=== PATIENT | male | born 1950 | race Caucasian/White ===

== ENCOUNTER 2018-04-13 14:43 | Inpatient (IN) | payer MEDICARE, OTHER ==
[~2018-04-13] VITALS: Ht 162.6 cm; Wt 64.9 kg
[2018-04-13] MEDS ORDERED: SODIUM CHLORIDE 0.9% 1,000 ML IV ONE (15:11)
[2018-04-13 16:44] LABS: CHLORIDE 105 mEq/L (98-107)
[2018-04-13 16:49] LABS: HEMATOCRIT. 30.9 % (42.0-52.0); HEMOGLOBIN. 10.3 g/dL (14.0-18.0); MEAN CORPUSCULAR HEMOGLOBIN 30.8 pg (28.0-32.0); MEAN CORPUSCULAR VOLUME 92.2 fL (80.0-94.0); MEAN PLATELET VOLUME 8.6 fl (7.4-10.4); RED BLOOD CELL COUNT 3.35 mill/uL (4.7-6.1); RED CELL DISTRIBUTION WIDTH 18.5 % (11.6-14.6)
[2018-04-13 16:56] LABS: PLATELET 12 x1000/uL (130-400)
[2018-04-13] MEDS ORDERED: CEFTRIAXONE 1 G PREMIX 50 ML IV ONE (17:30)
[2018-04-13 20:00] VITALS: BP 134/83
[2018-04-13 20:07] LABS: CLARITY URINE CLEAR (CLEAR); COLOR URINE YELLOW (YELLOW); KETONES URINE NEGATIVE (NEGATIVE); LEUKOCYTE ESTERASE URINE 1+ (NEGATIVE); NITRITE URINE NEGATIVE (NEGATIVE); OCCULT BLOOD URINE 3+ (NEGATIVE); PROTEIN URINE 1+ (NEGATIVE); SPECIFIC GRAVITY URINE 1.004 (1.005-1.030); UROBILINOGEN URINE 0.2 E.U./dL (0.2-1.0)
[2018-04-13 20:26] LABS: PLATELET ESTIMATE MARKEDLY DECREASED
[2018-04-13 21:00] VITALS: BP 134/83
[2018-04-13] MEDS ORDERED: ATOR10TA MT (21:06)
[2018-04-13] MEDS ORDERED: AMLO2.5T45 MT (21:06)
[2018-04-13] MEDS ORDERED: METO25TA6 MT (21:06)
[2018-04-13] MEDS ORDERED: MORPHINE SULFATE 10 MG/ML CPJ IV PRN (22:00)
[2018-04-14] VITALS (10 sets, daily range): BP systolic 143–156; BP diastolic 74–84
[2018-04-14] MEDS ORDERED: ONDANSETRON HCL 4MG/2ML INJ IV PRN (03:00)
[2018-04-14] MEDS: BLOOD SUGAR DIAGNOSTIC STRIP TEST SCH ×4 (06:23→21:20)
[2018-04-14] MEDS ORDERED: DEXTROSE 50% WATER 50ML SYRINGE IV PRN (07:30)
[2018-04-14] MEDS ORDERED: INSULIN LISPRO 100 UNITS/ML SUBCUT SCH (07:50)
[2018-04-14 07:53] LABS: HEMATOCRIT. 26.7 % (42.0-52.0); HEMOGLOBIN. 9.1 g/dL (14.0-18.0); MEAN CORPUSCULAR HEMOGLOBIN 31.1 pg (28.0-32.0); MEAN CORPUSCULAR VOLUME 91.6 fL (80.0-94.0); MEAN PLATELET VOLUME 8.3 fl (7.4-10.4); RED BLOOD CELL COUNT 2.92 mill/uL (4.7-6.1)
[2018-04-14 08:04] LABS: PLATELET 9 x1000/uL (130-400)
[2018-04-14] MEDS: AMLODIPINE 10MG TABLET PO SCH (08:46)
[2018-04-14] MEDS ORDERED: ACETAMINOPHEN 650MG/20.3ML UDC PO PRN (09:45)
[2018-04-14 12:03] LABS: HEPATITIS B SURFACE ANTIGEN NEGATIVE
[2018-04-14 12:29] LABS: HEPATITIS A AB IGM NEGATIVE (NEGATIVE)
[2018-04-14] MEDS: SODIUM CHLORIDE 0.45% 1,000 ML IV SCH (12:36)
[2018-04-14] MEDS ORDERED: LORAZEPAM 2MG/ML CPJ IV PRN (13:00)
[2018-04-14] MEDS ORDERED: CEFTRIAXONE 1 G PREMIX 50 ML IV SCH (18:00)
[2018-04-14] MEDS: MEROPENEM 1,000 MG in SODIUM CHLORIDE 0.9% 100 ML IV SCH (18:25)
[2018-04-14 20:07] LABS: HEMATOCRIT. 25.6 % (42.0-52.0); HEMOGLOBIN. 8.6 g/dL (14.0-18.0); MEAN CORPUSCULAR HEMOGLOBIN 30.8 pg (28.0-32.0); MEAN CORPUSCULAR VOLUME 91.6 fL (80.0-94.0); MEAN PLATELET VOLUME 8.4 fl (7.4-10.4); RED CELL DISTRIBUTION WIDTH 17.5 % (11.6-14.6)
[2018-04-14 20:11] LABS: PLATELET 7 x1000/uL (130-400)
[2018-04-14 20:14] LABS: INR 1.3; PROTHROMBIN TIME 13.1 sec (9.1-11.1)
[2018-04-14 21:11] LABS: PLATELET ESTIMATE MARKEDLY DECREASED
[2018-04-14] MEDS: LEVETIRACETAM 500MG/5ML CUP PO SCH (21:20)
[2018-04-14 22:27] LABS: ATYPICAL LYMPHOCYTES 1; PLATELET ESTIMATE DECREASED
[2018-04-15] VITALS (9 sets, daily range): BP systolic 140–157; BP diastolic 74–81
[2018-04-15] MEDS: SODIUM CHLORIDE 0.45% 1,000 ML IV SCH ×2 (03:33→10:49)
[2018-04-15] MEDS: MEROPENEM 1,000 MG in SODIUM CHLORIDE 0.9% 100 ML IV SCH ×2 (03:33→08:13)
[2018-04-15] MEDS: BLOOD SUGAR DIAGNOSTIC STRIP TEST SCH ×2 (07:20→12:20)
[2018-04-15] MEDS: LEVETIRACETAM 500MG/5ML CUP PO SCH (08:13)
[2018-04-15] MEDS: AMLODIPINE 10MG TABLET PO SCH (08:13)
[2018-04-15 09:27] LABS: HEMATOCRIT. 23.7 % (42.0-52.0); HEMOGLOBIN. 8.1 g/dL (14.0-18.0); MEAN CORPUSCULAR VOLUME 91.2 fL (80.0-94.0); MEAN PLATELET VOLUME 7.6 fl (7.4-10.4); RED BLOOD CELL COUNT 2.59 mill/uL (4.7-6.1); RED CELL DISTRIBUTION WIDTH 17.4 % (11.6-14.6)
[2018-04-15] MEDS ORDERED: BICALUTAMIDE 50 MG TABLET PO SCH (11:00)
[2018-04-15 14:33] LABS: PLATELET ESTIMATE MARKEDLY DECREASED
[2018-04-15 14:34] LABS: PLATELET 20 x1000/uL (130-400)
[2018-04-17 09:06] LABS: IMMUNOGLOBULIN A 239 mg/dL (61-437); IMMUNOGLOBULIN G 1006 mg/dL (700-1600); IMMUNOGLOBULIN M 79 mg/dL (20-172)
== END 2018-04-15 15:03 | disposition home or self-care (01) | DRG 871 ==
LOC: ER 14:52 → 6EST 17:30 → ENRESERV 19:48
PROVIDERS: ADMIT Internal Medicine; ATTEND Internal Medicine
PROC: 30233R1 Transfusion of Nonautologous Platelets into Peripheral Vein, Percutaneous Approach (ICD-10-PCS; principal; 2018-04-14)
DX: A41.9 Sepsis, unspecified organism (principal); E43 Unspecified severe protein-calorie malnutrition; G92 Toxic encephalopathy; C79.51 Secondary malignant neoplasm of bone; N39.0 Urinary tract infection, site not specified; C61 Malignant neoplasm of prostate; H70.12 Chronic mastoiditis, left ear; D64.9 Anemia, unspecified; D69.6 Thrombocytopenia, unspecified; Z66 Do not resuscitate; N18.3 Chronic kidney disease, stage 3 (moderate); E78.5 Hyperlipidemia, unspecified; I25.10 Atherosclerotic heart disease of native coronary artery without angina pectoris; I12.9 Hypertensive chronic kidney disease with stage 1 through stage 4 chronic kidney disease, or unspecified chronic kidney disease; E11.22 Type 2 diabetes mellitus with diabetic chronic kidney disease; Z87.440 Personal history of urinary (tract) infections; Z86.73 Personal history of transient ischemic attack (TIA), and cerebral infarction without residual deficits; Z85.118 Personal history of other malignant neoplasm of bronchus and lung; Z68.24 Body mass index [BMI] 24.0-24.9, adult; Z95.5 Presence of coronary angioplasty implant and graft
CPT/HCPCS: 36415; 71045; 80048; 82784; 82962; 84153; 85384; 86334; 86705; 86709; 86803; 86850; 86870; 86900; 87340; 93005; 96361; 96365; 97162; 99285; J0696; J2185; J7030; J7040; J7050; P9034; G0103